=== PATIENT | female | born 1970 | race Two or more races ===

== ENCOUNTER 2021-05-21 23:32 | Emergency (ER) | payer OTHER, SELFPAY ==
--- NOTE | ~2021-05-21 | XR_ITS ---
EXAMINATION: XR KNEE, LEFT CLINICAL INFORMATION: Fall COMPARISON: None TECHNIQUE: Four views of the left knee. FINDINGS: No acute fracture or dislocation. Joint spaces and articular surfaces are maintained. Small marginal osteophytes along the superior and inferior poles of patella. Trace joint effusion. XR/XR knee LT 2V IMPRESSION: No acute fracture or dislocation.
[2021-05-21 23:47] VITALS: BP 241/100; PULSE 59; RESP 16; TEMP 36.2; O2SAT 96; BMI 36.2
--- NOTE | 2021-05-21 23:55 | PC.NURSE ---
PT HAD A SLIP AND FALL 2 WEEKS AGO, WHILE IN P.R. PT REPORTS SHE HAD XRAY OF LEFT KNEE, TOLD SHE HAD WEAK LIGAMENTS.
--- NOTE | 2021-05-22 00:03 | PC.NURSE ---
PT TOOK HER EVENING DOSE OF HTN MEDICATION WHILE IN TRIAGE.
--- NOTE | 2021-05-22 00:43 | ED_ITS ---
HPI - Extremity Injury (Lower) General Chief Complaint: Extremity Injury, Lower Stated Complaint: left hip/knee pain Time Seen by Provider: 05/22/21 00:06 Source: patient Mode of arrival: ambulatory Limitations: no limitations History of Present Illness HPI Narrative: Patient while walking ,left knee gave out and fell 1 week ago since then complaining of pain and slight swelling of the left knee especially on ambulation. Patient denies any prior history of knee problems no other injury Related Data Previous Rx's Medication Instructions Recorded tramadol 50 mg tablet 50 mg PO Q6H PRN #20 tab 05/22/21 Allergies Allergy/AdvReac Type Severity Reaction Status Date / Time ibuprofen [From MOTRIN] AdvReac Unknown GI DISTRESS Verified 05/22/21 00:56 Review of Systems 2 Review of Systems: Yes all other systems are reviewed and are negative [facility] Past Medical History Medical History Hypertension Social History Social History Advance Directives: No Physical Exam Vital Signs: Vital Signs: Last Vital Signs Temp 97.2 F 05/21/21 23:47 Pulse 53 05/22/21 01:01 Resp 17 05/22/21 01:01 BP 204/81 H 05/22/21 01:01 Pulse Ox 96 05/21/21 23:47 Body Mass Index 36.2 Const: General: well developed Orientation/consciousness: patient oriented x3 HENMT: Head: Yes normocephalic and Yes atraumatic Resp: Effort & Inspection: normal respiratory effort Auscultation: clear to auscultation bilaterally Cardio: Rate: regular rate Rhythm: regular rhythm Heart sounds: S1 normal heart sound present and S2 normal heart sound present Neuro: General: patient oriented x3 and no focal motor deficits Extrem: Knee images: 1. Tender at medial joint line with slight knee effusion Faith sign positive. Drawer signs negative good range of movement MDM - Extremity Injury (Lower) MDM Narrative Medical decision making narrative: Patient clinically with medial meniscal strain x-ray negative for any fracture history was applied patient advised to continue tramadol and follow with Orthopedic as needed Differential Diagnosis Differential diagnosis: Likely acute internal derangement of knee Discharge Plan Discharge Clinical Impression: Acute internal derangement of knee Qualifiers: Laterality: left Qualified Code(s): M23.92 - Unspecified internal derangement of left knee Patient Disposition: Home, Self-Care Instructions: Knee Pain (ED) Additional Instructions: Chauncey wrap as advised Rest to the left knee Pain medication as prescribed Follow with Orthopedics if pain continues Prescriptions: New tramadol 50 mg tablet 50 mg PO Q6H PRN (Reason: pain) Qty: 20 RF: 0 Referrals: Fortino Fernandez MD [Physician] - 2 weeks
[2021-05-22] MEDS: traMADoL HCL 50 MG TABLET PO (01:00)
[2021-05-22 01:01] VITALS: BP 204/81; PULSE 53; RESP 17
== END 2021-05-22 01:14 | disposition home or self-care (01) ==
PROVIDERS: Emergency Provider Internal Medicine
DX: M23.92 Unspecified internal derangement of left knee (principal); I10 Essential (primary) hypertension
CPT/HCPCS: 73560; 99283; 99284

== ENCOUNTER 2022-06-19 14:38 | Emergency (ER) | payer OTHER, SELFPAY ==
[2022-06-19] VITALS (7 sets, daily range): BP systolic 196–260; BP diastolic 98–140; PULSE 56–66; RESP 17–20; TEMP 36.4; O2SAT 94–98; BMI 30.7
--- NOTE | 2022-06-19 | ECG_ITS ---
Test Reason : HYPERTENTION Blood Pressure : / mmHG Vent. Rate : 059 BPM Atrial Rate : 059 BPM P-R Int : 164 ms QRS Dur : 094 ms QT Int : 476 ms P-R-T Axes : 069 -04 024 degrees QTc Int : 471 ms Sinus bradycardia Possible Left atrial enlargement Left ventricular hypertrophy with repolarization abnormality ( R in aVL , Sokolow-Mitchell , Tao product , Romhilt-Rice ) Septal infarct (cited on or before 01-FEB-2016) Abnormal ECG When compared with ECG of 01-FEB-2016 08:45, No significant change was found Referred By: Generic ED Physician Electronically Signed By:CHRISTOPHE NIEVES
--- NOTE | ~2022-06-19 | CT_ITS ---
EXAMINATION: CT HEAD WITHOUT CONTRAST CLINICAL INFORMATION: Headache with right facial numbness and right upper extremity weakness COMPARISON: Head CT 02/01/2016 TECHNIQUE: Imaging was performed from the skull base to vertex without intravenous administration of contrast. This CT examination was performed using dose optimization techniques as appropriate, variously including the following: *Automated exposure control *Adjustment of mA and/or kV according to patient size (this includes techniques or standardized protocols for targeted exams where dose is matched to indication/reason for exam; i.e. extremities or head) *Use of iterative reconstruction technique Total exam dose length product: 740 mGy-cm FINDINGS: No intra or extra-axial fluid collection, hemorrhage, or mass. No ventriculomegaly. No midline shift or herniation. Basal cisterns are patent. Roland-white matter differentiation is maintained. No territorial encephalomalacia. No significant volume loss. There is mild hypoattenuation in the periventricular white matter, nonspecific. No calvarial fracture or soft tissue abnormality. The mastoid air cells and visualized portions of the paranasal sinuses are well aerated. CT/CT head/brain wo IV con IMPRESSION: 1. No acute intracranial pathology.
--- NOTE | ~2022-06-19 | XR_ITS ---
EXAMINATION: XR CHEST CLINICAL INFORMATION: Shortness of breath COMPARISON: None TECHNIQUE: Frontal portable view of the chest was obtained. 5:21 PM FINDINGS: Lungs are clear. No pulmonary vascular congestion. There is no pleural effusion. The heart size is normal. The cardiac and mediastinal contours are normal. There are calcifications of the thoracic aorta. There are multilevel degenerative changes of dorsal spine. XR/XR chest 1V IMPRESSION: Unremarkable examination.
[2022-06-19 15:08] LABS: MANUAL DIFF FLAG NO
[2022-06-19 15:09] LABS: Basophils Absolute Auto 0.1 X10*3/uL (0.0-0.2); Basophils Percent Auto 0.8 % (0-2); Eosinophils Absolute Auto 0.3 X10*3/uL (0.0-0.4); Eosinophils Percent Auto 3.6 % (0-4); Hematocrit 36.4 % (37.0-47.0); Imm Gran Abs Auto 0.01 X10*3/uL (0.00-0.03); Imm Gran Pct Auto 0.1 % (0.0-0.4); Lymphocytes Absolute Auto 2.3 X10*3/uL (1.2-4.9); Lymphocytes Percent Auto 29.9 % (20-40); Mean Corpuscular Hemoglobin 30.5 pg (27.0-33.0); Mean Corpuscular Volume 92.6 fL (80.0-98.0); Mean Platelet Volume 9.9 fL (9.4-12.3); Monocytes Absolute Auto 0.5 X10*3/uL (0.1-1.2); Monocytes Percent Auto 6.2 % (2-11); Neutrophils Absolute Auto 4.6 x10*3/uL (2.0-8.3); Neutrophils Percent Auto 59.4 % (45-73); Platelet Count 197 X10*3/uL (160-400); Red Blood Count 3.93 X10*6/uL (4.20-5.50); Red Cell Distribution Width 13.9 % (11.0-16.0); White Blood Count 7.8 X10*3/uL (4.8-10.8)
[2022-06-19 15:30] LABS: Anion Gap 18 (12-20); Blood Urea Nitrogen 20 mg/dL (9-16); Calcium 9.6 mg/dL (8.4-10.2); Carbon Dioxide 25 mmol/L (22-29); Chloride 106 mmol/L (96-108); Creatinine Clr Calc Pharmacy 71.2; Estimated Glomerular Filt Rate 53; Glucose Random 105 mg/dL (60-115); Potassium 3.8 mmol/L (3.3-5.1); Sodium 145 mmol/L (135-145)
--- NOTE | 2022-06-19 16:37 | ED_ITS ---
HPI - Neuro Symptoms/Deficit General Chief Complaint: Neuro Symptoms/Deficit Stated Complaint: R side of face numb Time Seen by Provider: 06/19/22 14:58 Source: patient Mode of arrival: ambulatory Limitations: no limitations History of Present Illness HPI Narrative: 52-year-old female with history of hypertension on 40 mg of lisinopril at baseline presents to the ER for evaluation of acute onset of right-sided facial numbness that began yesterday. She reports she ran out of her lisinopril about a month ago. She reports taking her blood pressure at home and it was 229/126 on the left arm and 234/to 99 on the right arm. This morning she woke up with an 8/10 headache and persistent numbness to her right side of her face. She feels like is pins and needles and involved her entire right face and lip. She feels like it is harder than usual to speak and swallow. She also reports some right upper extremity weakness. She denies any RLE weakness or sensory deficits. No chest pain or SOB. She denies any drug or alcohol use. She denies being on any other medications other than the lisinopril that she is supposed to take. She admits to smoking 2-3 PPD of cigarettes. Onset (ago): day(s) (1) Location: speech, right face and right arm Severity: moderate Quality: weak, numb, tingling and constant Relieving factors: none Exacerbating factors: other (elevated BP) Context: sudden onset On Anticoagulants: No Associated symptoms: headaches and weakness Treatments Prior to Arrival: none Related Data Home Medications Medication Instructions Recorded Confirmed lisinopril 40 mg tablet 40 mg PO DAILY 06/19/22 06/19/22 Previous Rx's Medication Instructions Recorded lisinopril 40 mg tablet 40 mg PO DAILY #30 tabs 06/19/22 Allergies Allergy/AdvReac Type Severity Reaction Status Date / Time ibuprofen [From MOTRIN] AdvReac Unknown GI DISTRESS Verified 06/19/22 14:44 Review of Systems Review of Systems: Constitutional: No Fever, No Chills ENT/Mouth: No sore throat, No Rhinorrhea,+ Swallowing Difficulty Eyes: No Eye Pain, No Swelling, No Redness Cardiovascular: No Chest Pain, No SOB, No Orthopnea, No Edema Respiratory: No Cough, No Sputum, No Wheezing, No dyspnea Gastrointestinal: No Nausea, No Vomiting, No Diarrhea, No abdominal Pain Genitourinary: No Dysuria, No Urinary Frequency, No Hematuria Musculoskeletal: No joint pain, No Myalgias Skin: No Skin Lesions, No rash Neuro: + Weakness, + Numbness, No Dizziness, + Headache Psych: No Anxiety/Panic, No Depression Heme/Lymph: No Bruising, No Lymphadenopathy Endocrine: No Polyuria, No Polydipsia PMFSH Past Medical History Medical History Hypertension Social History Social History Advance Directives: No Advance Directives Information Provided: Yes Physical Exam Vital Signs: Vital Signs: Last Vital Signs Temp 97.6 F 06/19/22 14:44 Pulse 57 06/19/22 17:37 Resp 20 06/19/22 17:37 BP 196/100 H 06/19/22 17:37 Pulse Ox 96 06/19/22 17:37 O2 Del Method 06/19/22 17:37 BMI result Body Mass Index 30.7 Appearance: Alert. Oriented X3. No acute distress. Eyes: Pupils equal, round and reactive to light. ENT: Pharynx normal. Neck: Normal inspection. Neck supple. CVS: Normal heart rate and rhythm. Pulses normal. Respiratory: No respiratory distress. Breath sounds normal. Abdomen: Soft and nontender. +BS x4 Skin: Skin warm and dry. Normal skin color. Normal skin turgor. No rashes. Extremities: No lower extremity edema. Neuro: Oriented X 3. CN II-XII intact. Intermittent speech stuttering, otherwise clear, no slurring. Subjective sensory deficit of the right side of the face and anterior aspect of the right UE. Equal and symmetric strength throughout. Gait not tested due to severe HTN. Course Course Course Narrative: 52-year-old female with history of hypertension on lisinopril presents to the ER for evaluation of acute onset of right-sided facial numbness, right upper extremity weakness and numbness associated with malignant hypertension. Blood pressure 260/140 on arrival. Severe headache and subjective right sided facial numbness. Going to CT head now to r/o head bleed. IV Labetalol ordered. Reevaluation(s) Reevaluation #1: HR 58. BP 220/110 after 10 mg IV labetalol. 25 % reduction will be goal BP 200 systolic. She will most likely require ICU level of care for hypertensive emergency, close BP monitoring. Will hold off on cardene infusion for now. Reevaluation #2: Spoke with patient about admission to the hospital and she is adamantly refusing. We discussed the risks and benefits of hospitalization. We discussed the risks of leaving with hypertensive emergency, including stroke and . She promises to call her primary care doctor tomorrow. We also discussed the importance of further evaluation of secondary hypertension and recommend she get evaluated by a electronic equipment repairer and a nurses assistant. She agrees to do so as an ou tpatient. Patient have to sign out AMA. MDM - Neuro Symptoms/Deficit Medical Records Attestation: I reviewed the patient's medical records. Lab Data Attestation: I reviewed the patient's lab results. Result diagrams: 06/19/22 15:04 06/19/22 15:04 Labs: Lab Results 06/19/22 06/19/22 06/19/22 Range/Units 15:04 15:04 15:04 WBC 7.8 (4.8-10.8) X10*3/uL RBC 3.93 L (4.20-5.50) X10*6/uL Hgb 12.0 (12.0-16.0) g/dl Hct 36.4 L (37.0-47.0) % MCV 92.6 (80.0-98.0) fL MCH 30.5 (27.0-33.0) pg MCHC 33.0 (31.0-35.0) g/dl RDW 13.9 (11.0-16.0) % Plt Count 197 (160-400) X10*3/uL MPV 9.9 (9.4-12.3) fL Immature Gran % (Auto) 0.1 (0.0-0.4) % Neut % (Auto) 59.4 (45-73) % Lymph % (Auto) 29.9 (20-40) % [place] % (Auto) 6.2 (2-11) % Eos % (Auto) 3.6 (0-4) % Baso % (Auto) 0.8 (0-2) % Lymph # (Auto) 2.3 (1.2-4.9) X10*3/uL [place] # (Auto) 0.5 (0.1-1.2) X10*3/uL Eos # (Auto) 0.3 (0.0-0.4) X10*3/uL Baso # (Auto) 0.1 (0.0-0.2) X10*3/uL Abs Immat Gran (auto) 0.01 (0.00-0.03) X10*3/uL Absolute Neuts (auto) 4.6 (2.0-8.3) x10*3/uL Absolute Nucleated RBC 0.000 (0.0-0.012) X10*3/uL Nucleated RBC % (auto) 0.0 (0.0-0.2) /100WBC Sodium 145 (135-145) mmol/L Potassium 3.8 (3.3-5.1) mmol/L Chloride 106 (96-108) mmol/L Carbon Dioxide 25 (22-29) mmol/L Anion Gap 18 (12-20) BUN 20 H (9-16) mg/dL Creatinine 1.08 (0.5-1.4) mg/dL Estim Creat Clear Calc 71.2 Estimated GFR 53 Random Glucose 105 (60-115) mg/dL Calcium 9.6 (8.4-10.2) mg/dL Troponin I High Sens 14.3 (<3.5-17.0) ng/L ECG Data Attestation: I personally reviewed and interpreted this ECG as follows: ECG interpretation date: 06/19/22 ECG interpretation time: 17:21 Prior ECG tracings: available for review Interpretation: sinus bradycardia, heart rate 59 bpm, left ventricular hypertrophy no significant change from prior 2016. Critical Care Time Critical Care Time Critical Care Time: Yes Total Critical Care Time: 39 Attestation: I have personally provided critical care time exclusive of time spent on separately billable procedures. Time includes review of lab data, radiology results, discussion with consultants, and monitoring for potential decompensation. Intervention performed as documented. Discharge Plan Discharge Clinical Impression: Hypertensive emergency Patient Disposition: Left Against Medical Advice Instructions: Hypertensive Crisis (ED) Additional Instructions: Your blood pressure is dangerously elevated. There is risk for stroke, cardiac . Recommend you stay in the hospital for further management but he refused. A prescription for 30 days of his sent to your pharmacy. Start taking tomorrow night. Recommend monitoring her blood pressure 2 times a day at home. Recommend following up with the provided electronic equipment repairer, call their office for further evaluation of secondary hypertension. Recommend following up with Cardiology. Your EKG shows evidence of structural heart disease. You need an echocardiogram of your heart. If you develop new or worsening symptoms call 911 or come back to the ER for further evaluation. Prescriptions: New lisinopril 40 mg tablet 40 mg PO DAILY Qty: 30 0RF No Action lisinopril 40 mg Tablet 40 mg PO DAILY Referrals: [facility] [[facility] Group] Keron Peralta MD [Physician] - (HTN emergency, needs evaluation of secondary causes) Stand Alone Forms: Against Medical Advice
[2022-06-19 17:01] LABS: Troponin-I High Sensitivity 14.3 ng/L (<3.5-17.0)
[2022-06-19] MEDS: Labetalol HCL 100 MG/20 ML VIAL 10 MG IVPUSH (17:10)
[2022-06-19 18:01] LABS: COVID-19 Test Negative (Negative); IDNOW Serial# 16C4AD1C
--- NOTE | 2022-06-19 18:09 | PHA.MEDREC ---
Pharmacy Consult ? Medication Reconciliation Pharmacy has completed the medication reconciliation.
--- NOTE | 2022-06-19 18:14 | PC.NURSE ---
Provider (Keiry Vo) at bedside speaking with patient. Pt remains severely hypertensive despite Labetalol IV administration. Discussed next steps. Pt refusing hospitalization. States I hate hospitals. I'm not staying here or any hospital. I'm not staying here alone . Provider discussed risks of leaving AMA with severely elevated hypertension, including risk of stroke or . Pt repeatedly verbalized I know, but I'd rather at home. If it's my time, it's my time. I'm not staying here. I'll go see doctors and do anything but stay even one night . Pt to leave AMA, refusing admission.
[2022-06-19] MEDS: Acetaminophen 325 MG TABLET 975 MG PO (18:50)
[2022-06-19] MEDS: lisinopriL 40 MG TABLET PO (18:51)
== END 2022-06-19 19:46 | disposition left against medical advice (07) ==
PROVIDERS: Physician Assistant; Emergency Provider Emergency Medicine
DX: I16.0 Hypertensive urgency (principal); R51.9 Headache, unspecified; Z20.822 Contact with and (suspected) exposure to COVID-19; Z79.899 Other long term (current) drug therapy
CPT/HCPCS: 36415; 70450; 71045; 80048; 84484; 85025; 87635; 93005; 96374; 99284

== ENCOUNTER 2022-06-26 08:11 | Emergency (ER) | payer OTHER, SELFPAY ==
[2022-06-26 08:17] VITALS: BP 250/110; PULSE 58; O2SAT 99
[2022-06-26 08:29] VITALS: BP 238/103; PULSE 53; RESP 18; TEMP 36.8; O2SAT 99; BMI 29.7
[2022-06-26 08:36] VITALS: BP 217/89; PULSE 51; RESP 16; TEMP 36.4; O2SAT 95
--- NOTE | 2022-06-26 09:08 | ED.GENADULT ---
HPI - General Adult General Chief complaint: General Medical Stated complaint: HEADACHE,HYPERTENSION Time Seen by Provider: 06/26/22 08:16 Source: patient, family, RN notes reviewed and old records reviewed Mode of arrival: ambulatory History of Present Illness HPI narrative: The patient presents to the ED today complaining of a headache. The patient was here last week with similar complaints, however at that time, also noted was some facial numbness. It was recommended at that time that the patient be admitted for a hypertensive emergency, however the patient signed out against medical advice. She was given a prescription for lisinopril, which she states that she has been taking at home. Woke up this morning again with a headache, however no other associated neurological symptoms at this time. Review of the patient's record at that time shows that the patient did in fact have a CT scan of the head which was unremarkable. Location: head Radiation: non-radiation Severity: moderate Severity scale (1-10): 9 (Currently a 1) Quality: aching Pain Consistency: constant and now resolved Exacerbating factors: none Associated symptoms: denies other symptoms Treatments prior to arrival: other (Took additional blood pressure medication) Related Data Home Medications Medication Instructions Recorded Confirmed lisinopril 40 mg tablet 40 mg PO DAILY 06/19/22 06/19/22 Previous Rx's Medication Instructions Recorded lisinopril 40 mg tablet 40 mg PO DAILY #30 tabs 06/19/22 amlodipine 5 mg tablet 5 mg PO DAILY #14 tabs 06/26/22 Allergies Allergy/AdvReac Type Severity Reaction Status Date / Time ibuprofen [From MOTRIN] AdvReac Unknown GI DISTRESS Verified 06/19/22 14:44 Review of Systems Review of Systems: Yes all other systems are reviewed and are negative Constitutional: Constitutional: Denies fatigue, Denies fever(s) and Denies weakness Eyes: Eyes: Denies blurry vision, Denies change in vision, Denies diplopia and Denies seeing flashes ENT: Denies vertigo and Denies dizziness Cardiovascular: Cardiovascular: Denies chest pain, Denies rapid heart rate, Denies edema, Denies lightheadedness and Denies dyspnea Respiratory: Respiratory: Denies cough and Denies dyspnea Gastrointestinal: Gastrointestinal: Denies diarrhea, Denies nausea and Denies vomiting Genitourinary: Genitourinary: Reports no additional female genitourinary complaints Musculoskeletal: Musculoskeletal: Denies abnormal gait, Denies muscle weakness, Denies numbness and Denies tingling Integumentary/Breasts: Skin/Breast: Reports system reviewed and no additional complaints, except as docu Neurologic: Denies Abnormal speech present, Denies abnormal gait, Denies confusion, Denies vertigo, Denies dizziness, Denies numbness, Denies seizure-like activity, Denies Sensory deficit (Neuro), Denies tingling, Denies paresthesias and Denies weakness Psychiatric: Psychiatric: Denies confusion and Denies depression Endocrine: Endocrine: Reports no additional endocrine complaints and Denies fatigue [facility], [facility] Past Medical History Attestation statement: The following information was validated with the patient. [facility], [facility] Narrative: Patient states in the past had been on lisinopril and propranolol Source: obtained from family and nursing notes reviewed Medical History Hypertension Social History Social History Advance Directives: Yes Advance Directives Information Provided: Yes Advance Directives on File: No Physical Exam ED Vital Signs: Vital Signs - 24 hr 06/26/22 08:29 06/26/22 08:36 06/26/22 09:44 Temperature 98.2 F 97.5 F 97.4 F Pulse Rate 53 51 63 Respiratory Rate 18 16 16 Blood Pressure 238/103 H 217/89 H 240/115 H Pulse Oximetry 99 95 95 Oxygen Delivery Method Room Air Room Air Room Air 06/26/22 14:21 Temperature Pulse Rate Respiratory Rate Blood Pressure 202/87 H Pulse Oximetry Oxygen Delivery Method BMI result Body Mass Index 29.7 Marked hypertension Const General: cooperative, healthy appearing and no acute distress; No confusion Orientation/consciousness: patient oriented x3 and No confusion HENMT Head: Yes normal to inspection, Yes normocephalic and Yes atraumatic Ears: hearing grossly normal bilaterally General nose exam: Normal external nose present Face and sinus: Yes normal facial exam Mouth: Normal oral and palatal mucosa present Eyes General: appearance normal, both eyes and all related structures Periorbital: periorbital findings normal Conjunctivae: conjunctivae normal Sclerae: sclerae normal Pupils: Equal, round and reactive pupils present, not dilated, not fixed and reactive EOM: EOMs intact bilaterally Direct Ophthalmoscopy: normal light reflex and no photophobia Neck Neck: Yes normal visual inspection, Yes full ROM and Yes no meningeal signs Chest Chest palpation & inspection: normal inspection of the chest Resp Effort & Inspection: normal respiratory effort, able to speak in complete sentences, no audible wheezes, no cough and respiratory effort not decreased Auscultation: clear to auscultation bilaterally Cardio Rate: regular rate Rhythm: regular rhythm Heart sounds: no murmurs GI Inspection: Yes normal to inspection Palpation (GI): nontender Auscultation: normal bowel sounds Back/Spine/Pelvis Cervical Spine: normal cervical lordosis and cervical ROM normal Thoracic/Lumbar Spine: thoracic and lumbar spine normal to inspection Skin General skin exam: no rashes or lesions noted, no petechiae and no pallor Neuro General: patient oriented x3, Normal light touch and pain sensation, no meningeal signs, no focal motor deficits, CN's II-XI intact bilaterally, deep tendon reflexes 2+ bilaterally and No confusion Cranial nerves: Yes Equal, round and reactive pupils present Speech: No Abnormal speech present Gait exam (Neuro): Normal gait present Motor exam (neuro): 5/5 motor strength present throughout Sensory Exam: No Sensory deficit (Neuro) Extrem General: Yes normal to inspection, Yes full ROM and No edema Course Reevaluation(s) Reevaluation #1: Headache significantly improved, patient noted to be sleeping at times Time: 12:30 Reevaluation #2: BP 210/77. No headache. Bradycardia noted, but patient states that she always has a low HR. Time: 14:25 Medical Decision Making MDM Narrative Medical decision making narrative: Patient received 20 mg of propranolol. States that when she was in [place], she was on lisinopril and propranolol with good control of her blood pressure. HR low (baseline). Will plan on d/c, continue with Lisinopril, but will add a calcium channel brooke (amlodipine) instead of beta brooke b/c of heart rate. Patient instructed to call PCP today and schedule recheck in a few days. Differential Diagnosis Differential Diagnosis: hypertensive urgency, hypertension with headache Medical Records Medical records reviewed: Yes I reviewed the patient's medical records. Medical records narrative: Old medical records not available. ED records and CT scan from several days ago were reviewed Lab Data Lab results reviewed: Yes I reviewed the patient's lab results. Lab results narrative: Lab studies reviewed and are essentially normal. No evidence of kidney injury. Result diagrams: 06/26/22 10:36 06/26/22 10:36 Labs: Lab Results 06/26/22 06/26/22 Range/Units 10:36 10:36 WBC 9.1 (4.8-10.8) X10*3/uL RBC 3.95 L (4.20-5.50) X10*6/uL Hgb 12.4 (12.0-16.0) g/dl Hct 37.6 (37.0-47.0) % MCV 95.2 (80.0-98.0) fL MCH 31.4 (27.0-33.0) pg MCHC 33.0 (31.0-35.0) g/dl RDW 14.0 (11.0-16.0) % Plt Count 207 (160-400) X10*3/uL MPV 10.4 (9.4-12.3) fL Immature Gran % (Auto) 0.2 (0.0-0.4) % Neut % (Auto) 69.8 (45-73) % Lymph % (Auto) 20.3 (20-40) % [place] % (Auto) 6.9 (2-11) % Eos % (Auto) 2.4 (0-4) % Baso % (Auto) 0.4 (0-2) % Lymph # (Auto) 1.9 (1.2-4.9) X10*3/uL [place] # (Auto) 0.6 (0.1-1.2) X10*3/uL Eos # (Auto) 0.2 (0.0-0.4) X10*3/uL Baso # (Auto) 0.0 (0.0-0.2) X10*3/uL Abs Immat Gran (auto) 0.02 (0.00-0.03) X10*3/uL Absolute Neuts (auto) 6.4 (2.0-8.3) x10*3/uL Absolute Nucleated RBC 0.000 (0.0-0.012) X10*3/uL Nucleated RBC % (auto) 0.0 (0.0-0.2) /100WBC Sodium 141 (135-145) mmol/L Potassium 4.8 D (3.3-5.1) mmol/L Chloride 107 (96-108) mmol/L Carbon Dioxide 26 (22-29) mmol/L Anion Gap 13 (12-20) BUN 22 H (9-16) mg/dL Creatinine 1.02 (0.5-1.4) mg/dL Estim Creat Clear Calc 71.9 Estimated GFR 57 Random Glucose 116 H (60-115) mg/dL Calcium 9.4 (8.4-10.2) mg/dL ECG Data Attestation: I personally reviewed and interpreted this ECG as follows: Prior ECG tracings: available for review Interpretation: Sinus bradycardia at 48, normal axis normal intervals biphasic T-wave in V2 only. No significant interval change from prior EKG dated June 19, 2022 Discharge Plan Discharge Clinical Impression: Hypertensive urgency, Headache Patient Disposition: Home, Self-Care Instructions: Chronic Hypertension (ED) Additional Instructions: continue to take your lisinopril, but add amlodipine as prescribed. Call your doctor today to schedule a follow up visit and re-evaluation of your blood pressure Prescriptions: New amlodipine 5 mg tablet 5 mg PO DAILY Qty: 14 1RF No Action lisinopril 40 mg Tablet 40 mg PO DAILY lisinopril 40 mg tablet 40 mg PO DAILY Qty: 30 0RF
[2022-06-26 09:44] VITALS: BP 240/115; PULSE 63; RESP 16; TEMP 36.3; O2SAT 95
--- NOTE | 2022-06-26 10:17 | ECG_ITS ---
Test Reason : hypertension Blood Pressure : / mmHG Vent. Rate : 048 BPM Atrial Rate : 048 BPM P-R Int : 186 ms QRS Dur : 100 ms QT Int : 518 ms P-R-T Axes : 058 -04 -08 degrees QTc Int : 462 ms Sinus bradycardia Possible Left atrial enlargement Left ventricular hypertrophy ( R in aVL , Sokolow-Mitchell , Hawthorne product ) Nonspecific T wave abnormality Prolonged QT Abnormal ECG When compared with ECG of 19-JUN-2022 14:57, T wave inversion more evident in Inferior leads Referred By: Gil Wallace Electronically Signed By:GONZÁLEZ RIDLEY MD
[2022-06-26 10:40] LABS: MANUAL DIFF FLAG NO
[2022-06-26 10:45] LABS: Basophils Percent Auto 0.4 % (0-2); Eosinophils Absolute Auto 0.2 X10*3/uL (0.0-0.4); Eosinophils Percent Auto 2.4 % (0-4); Hematocrit 37.6 % (37.0-47.0); Hemoglobin 12.4 g/dl (12.0-16.0); Imm Gran Abs Auto 0.02 X10*3/uL (0.00-0.03); Imm Gran Pct Auto 0.2 % (0.0-0.4); Lymphocytes Absolute Auto 1.9 X10*3/uL (1.2-4.9); Lymphocytes Percent Auto 20.3 % (20-40); Mean Corpuscular Hemoglobin 31.4 pg (27.0-33.0); Mean Corpuscular Volume 95.2 fL (80.0-98.0); Mean Platelet Volume 10.4 fL (9.4-12.3); Monocytes Absolute Auto 0.6 X10*3/uL (0.1-1.2); Monocytes Percent Auto 6.9 % (2-11); Neutrophils Absolute Auto 6.4 x10*3/uL (2.0-8.3); Neutrophils Percent Auto 69.8 % (45-73); Platelet Count 207 X10*3/uL (160-400); Red Blood Count 3.95 X10*6/uL (4.20-5.50); White Blood Count 9.1 X10*3/uL (4.8-10.8)
[2022-06-26] MEDS: Propranolol HCL 10 MG TABLET 20 MG PO (10:53)
[2022-06-26 11:00] LABS: Anion Gap 13 (12-20); Blood Urea Nitrogen 22 mg/dL (9-16); Calcium 9.4 mg/dL (8.4-10.2); Carbon Dioxide 26 mmol/L (22-29); Chloride 107 mmol/L (96-108); Creatinine Clr Calc Pharmacy 71.9; Estimated Glomerular Filt Rate 57; Glucose Random 116 mg/dL (60-115); Potassium 4.8 mmol/L (3.3-5.1); Sodium 141 mmol/L (135-145)
[2022-06-26 14:21] VITALS: BP 202/87
== END 2022-06-26 14:33 | disposition home or self-care (01) ==
PROVIDERS: Emergency Provider Emergency Medicine
DX: R51.9 Headache, unspecified (principal); I16.0 Hypertensive urgency; Z79.899 Other long term (current) drug therapy
CPT/HCPCS: 36415; 80048; 85025; 93005; 99283; 99284